=== PATIENT | female | born 1990 | race Caucasian/White ===

== ENCOUNTER → 2016-05-24 | Outpatient (REF) | payer OTHER, BC | END | disposition home or self-care (01) | LOC: M LAB REF 16:21 | PROVIDERS: ATTEND Physician Assistant | DX: N39.0 Urinary tract infection, site not specified (principal) ==

== ENCOUNTER → 2016-08-01 | Outpatient (REF) | payer OTHER, BC | LOC: M LAB REF 13:08 | PROVIDERS: ATTEND Physician Assistant | DX: J02.9 Acute pharyngitis, unspecified (principal) ==

== ENCOUNTER → 2017-06-11 | Outpatient (REF) | payer OTHER, BC ==
[2017-06-11 12:43] LABS: INFLUENZA A AMPLIFICATION NEGATIVE (NEGATIVE); INFLUENZA B AMPLIFICATION NEGATIVE (NEGATIVE)
== END ==
LOC: M SFHCLERA 10:33
DX: R53.81 Other malaise (principal); R05 Cough

== ENCOUNTER → 2017-07-15 | Outpatient (REF) | payer OTHER, BC | LOC: M LAB REF 09:15 | DX: J02.9 Acute pharyngitis, unspecified (principal) | CPT/HCPCS: 87081 ==

== ENCOUNTER → 2018-09-15 | Outpatient (CLI) | payer OTHER, BC ==
--- NOTE | 2018-09-16 04:18 | REP ---
Clinical: Dyspareunia with familial history of endometriosis . Technique: Transabdominal pelvic ultrasound followed by transvaginal examination for better evaluation of the endometrium and adnexa. Findings: Bladder is unremarkable and measures 11.6 x 9.9 x 7.5 cm . Normal anteverted uterus measures 6.7 x 2.2 x 3.1 cm . The endometrial complex measures 3.3 mm thickness. No discrete uterine or endometrial abnormalities are appreciated. Bilateral ovaries were not visible on either transabdominal or transvaginal examination. No pelvic fluid or adnexal mass lesion appreciated. Impression: 1. Normal appearing uterus. 2. Ovaries not identified on either transabdominal or transvaginal imaging.
== END ==
LOC: M WHC 09:00
PROVIDERS: ATTEND Nurse Practitioner Women's Health
DX: N94.10 Unspecified dyspareunia (principal); Z84.2 Family history of other diseases of the genitourinary system

== ENCOUNTER → 2019-02-12 | Outpatient (REF) | payer OTHER ==
[2019-02-12 15:18] LABS: CHLAMYDIA DNA AMPLIFICATION NEGATIVE (NEGATIVE); GC DNA AMPLIFICATION NEGATIVE (NEGATIVE)
== END ==
LOC: M SFHCWAGY 13:02
PROVIDERS: ATTEND Nurse Practitioner Women's Health
DX: Z11.3 Encounter for screening for infections with a predominantly sexual mode of transmission (principal)

== ENCOUNTER → 2019-04-08 | Outpatient (REF) | payer OTHER ==
[2019-04-08 19:23] LABS: APPEARANCE, URINE CLEAR (CLEAR); BACTERIA, URINE AUTO NEGATIVE (NEGATIVE); BILIRUBIN, URINE AUTO NEGATIVE (NEGATIVE); BLOOD, URINE BLOOD 2+ (NEGATIVE); COLOR, URINE STRAW (YELLOW); GLUCOSE, URINE (UA) AUTO NEGATIVE (NEGATIVE); KETONE, URINE AUTO NEGATIVE (NEGATIVE); LEUKOCYTE ESTERASE, URINE AUTO TRACE (NEGATIVE); NITRITE, URINE AUTO NEGATIVE (NEGATIVE); PROTEIN, URINE AUTO NEGATIVE (NEGATIVE); RBC, URINE AUTO 1 /HPF (0-3); SPECIFIC GRAVITY URINE AUTO 1.008 (1.002-1.035); SQUAMOUS EPITHELIAL CELL UR AU 0 /HPF (0-6); UROBILINOGEN, URINE AUTO 0.2 mg/dL (0.0-2.0); WBC, URINE AUTO 1 /HPF (0-3)
== END ==
LOC: M LAB REF 17:14
PROVIDERS: ATTEND Obstetrics & Gynecology
DX: N39.41 Urge incontinence (principal); N32.81 Overactive bladder

== ENCOUNTER 2019-07-09 08:00 | Day surgery (SDC) | payer OTHER ==
[~2019-07-09] VITALS: Ht 160 cm; Wt 63.1 kg
[~2019-07-09 08:00] MED LIST: AMETHYST PO; AMIT25TA PO; LIDOCAINE 1% MDV 20ML VIAL SQ PRN; LR 1,000 ML IV ONE
[2019-07-09] MEDS ORDERED: MIDAZOLAM INJ 2 MG/2 ML VIAL (J2250) As Ordered ONE (10:07)
[2019-07-09] MEDS ORDERED: KETOROLAC 60 MG/2 ML VIAL (J1885) As Ordered ONE (10:07)
[2019-07-09] MEDS ORDERED: ONDANSETRON 4MG/2ML VIAL (J2405) As Ordered ONE (10:07)
[2019-07-09] MEDS ORDERED: ROCURONIUM BROMIDE 50 MG/5 ML VIAL As Ordered ONE (10:07)
[2019-07-09] MEDS ORDERED: fentaNYL 100 MCG/2 ML INJECTION (J3010) As Ordered ONE (10:07)
[2019-07-09] MEDS ORDERED: dexameTHASONE 4 MG/ML 1ML VIAL (J1100) As Ordered ONE (10:07)
[2019-07-09] MEDS ORDERED: LIDOCAINE 2% INJ 100 MG/5 ML SDV (FOR ANES.) As Ordered ONE (10:07)
[2019-07-09] MEDS ORDERED: propofoL 200 MG/20 ML VIAL As Ordered ONE (10:07)
[2019-07-09] MEDS ORDERED: SUGAMMADEX SODIUM 500 MG/5 ML VIAL (BRIDION) As Ordered ONE (10:07)
[2019-07-09] MEDS ORDERED: HYDROmorphone HCL 2 MG/ML 1ML VIAL (J1170) As Ordered ONE (10:09)
[2019-07-09] MEDS ORDERED: METOCLOPRAMIDE INJ 10MG/2ML VIAL (J2765) IV PRN (11:30)
[2019-07-09] MEDS ORDERED: fentaNYL 100 MCG/2 ML INJECTION (J3010) IV PRN (11:30)
[2019-07-09] MEDS ORDERED: PERCOCET 5MG/325MG TAB PO PRN (11:30)
[2019-07-09] MEDS ORDERED: LR 1,000 ML IV SCH ×2 (11:30→12:31)
[2019-07-09] MEDS: ONDANSETRON 4MG/2ML VIAL (J2405) IV PRN ×2 (11:35→11:52)
[2019-07-09] MEDS ORDERED: PILL CUTTER 1 EACH XX ONE (11:40)
[2019-07-09] MEDS ORDERED: IBUPROFEN 600 MG TAB PO PRN (12:31)
[2019-07-09] MEDS ORDERED: NORCO, ANEXSIA 5/325MG TABLET (HYDROcodone/ACETAMINOPHEN) PO PRN (12:31)
[2019-07-09 13:30] VITALS: BP 125/67
--- NOTE | 2019-07-10 18:33 | RO ---
DATE OF PROCEDURE: 07/09/2019 PREOPERATIVE DIAGNOSIS: Left and right lower abdominal tenderness and pain and bladder tenderness. POSTOPERATIVE DIAGNOSIS: Minor adhesions of the descending colon, but no endometriosis, no evidence visibly of interstitial cystitis or of polyp, adhesion, or other significant lesion. She does have a little bit more prolapse than is average for her age. PROCEDURE: Laparoscopic lysis of adhesions and cystourethroscopy. SURGEON: Dr. Sharmila Rothman INTERNSHIP: None. ANESTHESIA: General endotracheal anesthesia. DESCRIPTION OF PROCEDURE: Giana was brought to the operating room where sufficient general endotracheal anesthesia was induced, and she was prepped, draped and positioned in the usual sterile fashion. With the uterine manipulator placed, after the uterus had been sounded to 7-1/2, and the bladder emptied. Attention was then turned to the abdomen. A transverse semilunar incision was made below the umbilicus. Sharp and blunt dissection continued through the subcutaneous tissues to the level of the rectus fascia, which was grasped with Rosas clamps, elevated to the wound, transversely incised under direct visualization. #0 Vicryl retention sutures were placed in the fascia. Then, peritoneum was entered directly in an open laparoscopic technique and a Cinthya cannula placed. CO2 insufflation was then begun, and the Cinthya was secured with the #0 Vicryl retention sutures. After adequate CO2 insufflation, the peritoneal cavity was visualized. There were normal, shiny peritoneal surfaces throughout. There was no excrescence, ascites, nor exudate. There was no powder burn or bright red lesions of endometriosis. There were no annular adhesions of the pelvis consistent with endometriosis. There were no adhesions or scarring in the ovarian fossa. There was no scarring over the tubes. There was no discernible evidence of endometriosis on any of the eval. The patient has a prominent and visible gallbladder as noted in the photos with a very clear, normal appearing liver, and had some filmy adhesions of the descending colon as is often seen. These were taken down with the cold scissors. There was really no difficulty in doing that. We did not need to use cautery. We did not have anything that we could biopsy, and the laser support was present but was not needed for this case, and so it was not used at any point because there were no lesions for which it was appropriate. Having confirmed a normal appearing abdomen and pelvis, with the exception of those minor adhesions which were taken down, we then ended the laparoscopic part of the case, letting as much of the CO2 escape the abdomen as possible. And closing the fascial wound at the umbilicus with the #0 Vicryl retention sutures and closing the skin wound with #3-0 Vicryl in a subcuticular stitch with good approximation and hemostasis at both layers, and a dry sterile dressing was then applied. Attention was turned to the cystourethroscopy. Of course, the uterine manipulator was removed at this point. At the time of cystourethroscopy, normal bladder mucosa was noted. There were no Hunner's lesions. There were no polyps. There were no hypervascular lesions. There were normal jets of urine from both ureters. There was a minor area of metaplasia over the trigone with an absolutely normal appearance as is typically seen. There was no scarring of the bladder from overfilling or sacculation of the wall. There were no diverticula. The urethra was similarly normal in appearance. The bladder was emptied at the end of the case, and the procedure was then ended. Estimated blood loss for the procedure: About 2 mL. Fluid replacement was crystalloid. Complications: None. Condition and Disposition: Giana tolerated the procedure well and was recovering in the recovery room in good condition.
== END 2019-07-09 13:40 | disposition home or self-care (01) ==
LOC: M SDC 08:00
PROVIDERS: ATTEND Obstetrics & Gynecology
DX: R10.31 Right lower quadrant pain (principal); R10.32 Left lower quadrant pain; R39.89 Other symptoms and signs involving the genitourinary system; K66.0 Peritoneal adhesions (postprocedural) (postinfection); N94.10 Unspecified dyspareunia; J00 Acute nasopharyngitis [common cold]; Z88.8 Allergy status to other drugs, medicaments and biological substances; Z79.899 Other long term (current) drug therapy
CPT/HCPCS: 49320; 52000; 81025; J1100; J1170; J1885; J2250; J2405; J2765; J3010

== ENCOUNTER → 2020-06-20 | Outpatient (REF) | payer OTHER ==
[~2020-06-20] MED LIST changes: -AMIT25TA PO; +AMIT25TA17 PO; -LIDOCAINE 1% MDV 20ML VIAL SQ PRN; -LR 1,000 ML IV ONE
== END ==
LOC: M SFHCWAGY 13:28
PROVIDERS: ATTEND Nurse Practitioner Women's Health
DX: Z12.4 Encounter for screening for malignant neoplasm of cervix (principal)

== ENCOUNTER → 2021-01-23 | Outpatient (CLI) | payer OTHER ==
[2021-01-23 17:55] LABS: BASO % 0.5 % (0.0-1.0); HEMATOCRIT 36.5 % (36.0-47.0); HEMOGLOBIN 12.2 g/dl (12.0-15.5); LYMPH # 1.6 10^3/uL (1.5-5.0); LYMPH % 18.5 % (24.0-44.0); MEAN CORPUSCULAR HEMOGLOBIN 29.6 pg (27.0-33.0); MEAN CORPUSCULAR HGB CONC 33.4 g/dl (32.0-36.5); MEAN CORPUSCULAR VOLUME 88.6 fl (80.0-96.0); MONO # 0.6 10^3/uL (0.0-0.8); NEUTROPHILS # 6.3 10^3/uL (1.5-8.5); NEUTROPHILS % 73.6 % (36.0-66.0); PLATELET COUNT, AUTOMATED 119 10^3/uL (150-450); RED BLOOD COUNT 4.12 10^6/uL (4.00-5.40); WHITE BLOOD COUNT 8.5 10^3/uL (4.0-10.0)
[2021-01-23 19:15] LABS: HIV 1&2 SCREEN CENTAUR NEGATIVE (NEGATIVE)
[2021-01-23 22:14] LABS: GC DNA AMPLIFICATION NEGATIVE (NEGATIVE)
== END ==
LOC: M PLALAB 14:57
PROVIDERS: ATTEND Obstetrics & Gynecology
DX: Z34.91 Encounter for supervision of normal pregnancy, unspecified, first trimester (principal); Z36.89 Encounter for other specified antenatal screening

== ENCOUNTER → 2021-03-03 | Outpatient (CLI) | payer OTHER ==
[2021-03-03 17:14] LABS: HEMATOCRIT 32.3 % (36.0-47.0); MEAN CORPUSCULAR HGB CONC 34.1 g/dl (32.0-36.5); PLATELET COUNT, AUTOMATED 149 10^3/uL (150-450); RED BLOOD COUNT 3.67 10^6/uL (4.00-5.40); WHITE BLOOD COUNT 8.9 10^3/uL (4.0-10.0)
== END ==
LOC: M PLALAB 15:37
PROVIDERS: ATTEND Obstetrics & Gynecology
DX: Z34.01 Encounter for supervision of normal first pregnancy, first trimester (principal); Z3A.00 Weeks of gestation of pregnancy not specified

== ENCOUNTER → 2021-04-17 | Outpatient (CLI) | payer OTHER ==
--- NOTE | 2021-04-17 12:27 | REP ---
INDICATION: ANATOMY COMPARISON: None. TECHNIQUE: Transabdominal obstetrical ultrasound with color Doppler evaluation. FINDINGS: Examination demonstrates a single live intrauterine in cephalic presentation. motion is identified by technologist. Placenta is noted anterior and grade 0 without evidence for placenta previa or abruption. Amniotic fluid volume is normal. Cervix measures 4.7 cm in length and appears closed.. Selected gestational age: 20 weeks 1 day with HANNA 09/03/2021. Gestational age by current measurements 20 weeks 1 day with HANNA 09/03/2021. FHR equals 146 beats per minute. Estimated weight 349 grams (58thpercentile). Anatomical assessment demonstrates normal structures including cranium, choroid plexus, cavum, cerebellum/posterior fossa, facial features, lungs, four-chamber heart/ventricular outflow tracts, diaphragm, stomach, cord insertion/three-vessel cord, kidneys/bladder, spine, and extremities. Limited evaluation of the facial profile. IMPRESSION: Single live intrauterine in cephalic presentation demonstrating appropriate estimated weight. Limited evaluation of the facial profile. Remainder of the anatomical assessment is complete and normal. <Electronically signed by Bjorn Archuleta > 04/17/21 [id number]
== END ==
LOC: M WHC 10:00
PROVIDERS: ATTEND Specialist
DX: Z34.02 Encounter for supervision of normal first pregnancy, second trimester (principal); Z36.89 Encounter for other specified antenatal screening; Z3A.20 20 weeks gestation of pregnancy

== ENCOUNTER → 2021-05-01 | Outpatient (CLI) | payer OTHER | LOC: M WHC 10:53 | PROVIDERS: ATTEND Advanced Practice Midwife | DX: Z34.02 Encounter for supervision of normal first pregnancy, second trimester (principal); Z3A.22 22 weeks gestation of pregnancy ==

== ENCOUNTER → 2021-05-01 | Outpatient (CLI) | payer OTHER | LOC: M WHC 10:52 | PROVIDERS: ATTEND Advanced Practice Midwife | DX: Z34.02 Encounter for supervision of normal first pregnancy, second trimester (principal); Z53.9 Procedure and treatment not carried out, unspecified reason ==

== ENCOUNTER → 2021-06-05 | Outpatient (CLI) | payer OTHER ==
[2021-06-05 12:54] LABS: HEMATOCRIT 30.4 % (36.0-47.0); HEMOGLOBIN 10.2 g/dl (12.0-15.5); MEAN CORPUSCULAR HEMOGLOBIN 30.3 pg (27.0-33.0); MEAN CORPUSCULAR HGB CONC 33.6 g/dl (32.0-36.5); MEAN CORPUSCULAR VOLUME 90.2 fl (80.0-96.0); PLATELET COUNT, AUTOMATED 166 10^3/uL (150-450); RED BLOOD COUNT 3.37 10^6/uL (4.00-5.40); WHITE BLOOD COUNT 8.3 10^3/uL (4.0-10.0)
[2021-06-05 14:47] LABS: GC DNA AMPLIFICATION NEGATIVE (NEGATIVE)
== END ==
LOC: M PLALAB 09:45
PROVIDERS: ATTEND Obstetrics & Gynecology
DX: Z36.89 Encounter for other specified antenatal screening (principal); Z3A.24 24 weeks gestation of pregnancy

== ENCOUNTER → 2021-06-26 | Outpatient (CLI) | payer OTHER | LOC: M LAB 06:53 | PROVIDERS: ATTEND Obstetrics & Gynecology | DX: R73.09 Other abnormal glucose (principal) ==

== ENCOUNTER → 2021-08-04 | Outpatient (CLI) | payer OTHER | LOC: M WHC 14:03 | PROVIDERS: ATTEND Obstetrics & Gynecology | DX: O26.843 Uterine size-date discrepancy, third trimester (principal); Z3A.35 35 weeks gestation of pregnancy ==

== ENCOUNTER → 2021-08-08 | Outpatient (REF) | payer OTHER | LOC: M SFHCWAGY 14:54 | PROVIDERS: ATTEND Obstetrics & Gynecology | DX: Z34.80 Encounter for supervision of other normal pregnancy, unspecified trimester (principal); Z3A.36 36 weeks gestation of pregnancy ==

== ENCOUNTER → 2021-10-18 | Outpatient (REF) | payer MEDICAID, OTHER ==
[~2021-10-18] MED LIST changes: +ACET-683 PO; +IBUP80TA PO
== END ==
LOC: M SFHCWAGY 12:52
PROVIDERS: ATTEND Obstetrics & Gynecology
DX: R30.0 Dysuria (principal)

== ENCOUNTER → 2022-09-17 | Outpatient (CLI) | payer OTHER ==
[2022-09-17 13:34] LABS: HEMATOCRIT 37.7 % (36.0-47.0); HEMOGLOBIN 12.5 g/dl (12.0-15.5); MEAN CORPUSCULAR HEMOGLOBIN 29.1 pg (27.0-33.0); MEAN CORPUSCULAR HGB CONC 33.2 g/dl (32.0-36.5); MEAN CORPUSCULAR VOLUME 87.7 fl (80.0-96.0); PLATELET COUNT, AUTOMATED 266 10^3/uL (150-450); WHITE BLOOD COUNT 6.4 10^3/uL (4.0-10.0)
[2022-09-17 14:27] LABS: HIV 1&2 SCREEN NEGATIVE (NEGATIVE)
[2022-09-17 15:06] LABS: GC DNA AMPLIFICATION NEGATIVE (NEGATIVE)
== END ==
LOC: M PLALAB 09:32
PROVIDERS: ATTEND Obstetrics & Gynecology
DX: Z36.89 Encounter for other specified antenatal screening (principal); Z3A.00 Weeks of gestation of pregnancy not specified

== ENCOUNTER → 2022-11-28 | Outpatient (CLI) | payer OTHER | LOC: M WHC 12:16 | PROVIDERS: ATTEND Advanced Practice Midwife | DX: Z34.92 Encounter for supervision of normal pregnancy, unspecified, second trimester (principal); Z3A.19 19 weeks gestation of pregnancy ==

== ENCOUNTER → 2023-01-11 | Outpatient (CLI) | payer OTHER ==
[~2023-01-11] MED LIST changes: -AMIT25TA17 PO; +AMIT25TA19 PO
== END ==
LOC: M WHC 10:41
PROVIDERS: ATTEND Advanced Practice Midwife
DX: O36.5920 Maternal care for other known or suspected poor fetal growth, second trimester, not applicable or unspecified (principal); Z3A.25 25 weeks gestation of pregnancy

== ENCOUNTER → 2023-01-15 | Outpatient (CLI) | payer OTHER ==
[2023-01-15 13:49] LABS: HEMATOCRIT 30.4 % (36.0-47.0); HEMOGLOBIN 10.1 g/dl (12.0-15.5); MEAN CORPUSCULAR HEMOGLOBIN 30.3 pg (27.0-33.0); MEAN CORPUSCULAR HGB CONC 33.2 g/dl (32.0-36.5); MEAN CORPUSCULAR VOLUME 91.3 fl (80.0-96.0); PLATELET COUNT, AUTOMATED 172 10^3/uL (150-450); RED BLOOD COUNT 3.33 10^6/uL (4.00-5.40); WHITE BLOOD COUNT 7.5 10^3/uL (4.0-10.0)
[2023-01-15 15:13] LABS: GC DNA AMPLIFICATION NEGATIVE (NEGATIVE)
== END ==
LOC: M PLALAB 08:28
PROVIDERS: ATTEND Advanced Practice Midwife
DX: Z34.92 Encounter for supervision of normal pregnancy, unspecified, second trimester (principal)

== ENCOUNTER → 2023-03-08 | Outpatient (CLI) | payer OTHER | LOC: M WHC 14:15 | PROVIDERS: ATTEND Advanced Practice Midwife | DX: O26.843 Uterine size-date discrepancy, third trimester (principal); Z3A.33 33 weeks gestation of pregnancy ==

== ENCOUNTER → 2023-03-14 | Outpatient (CLI) | payer OTHER | LOC: M WHC 14:28 | PROVIDERS: ATTEND Advanced Practice Midwife | DX: O36.5993 Maternal care for other known or suspected poor fetal growth, unspecified trimester, fetus 3 (principal); Z3A.34 34 weeks gestation of pregnancy ==

== ENCOUNTER → 2023-03-21 | Outpatient (CLI) | payer OTHER | LOC: M WHC 14:35 | PROVIDERS: ATTEND Advanced Practice Midwife | DX: O36.5993 Maternal care for other known or suspected poor fetal growth, unspecified trimester, fetus 3 (principal); Z3A.35 35 weeks gestation of pregnancy ==

== ENCOUNTER → 2023-03-25 | Outpatient (REF) | payer OTHER | LOC: M SFHCWAGY 17:20 | PROVIDERS: ATTEND Obstetrics & Gynecology | DX: Z36.85 Encounter for antenatal screening for Streptococcus B (principal) ==

== ENCOUNTER → 2023-03-27 | Outpatient (CLI) | payer OTHER | LOC: M WHC 14:20 | PROVIDERS: ATTEND Advanced Practice Midwife | DX: O36.5930 Maternal care for other known or suspected poor fetal growth, third trimester, not applicable or unspecified (principal); Z3A.36 36 weeks gestation of pregnancy ==

== ENCOUNTER → 2023-04-11 | Outpatient (CLI) | payer OTHER ==
[~2023-04-11] MED LIST changes: +IRON1TAB2 PO; +MULTTAB20 PO; +TUMS750C5 PO
== END ==
LOC: M WHC 14:25
PROVIDERS: ATTEND Advanced Practice Midwife
DX: O36.5993 Maternal care for other known or suspected poor fetal growth, unspecified trimester, fetus 3 (principal); Z3A.38 38 weeks gestation of pregnancy

== ENCOUNTER 2023-04-13 09:33 | Inpatient (IN) | payer OTHER ==
[~2023-04-13] VITALS: Ht 160 cm; Wt 77.6 kg
[2023-04-13] VITALS (15 sets, daily range): BP systolic 127–149; BP diastolic 72–94
[~2023-04-13 09:33] MED LIST changes: -IRON1TAB2 PO; -MULTTAB20 PO; -TUMS750C5 PO
[2023-04-13] MEDS ORDERED: TUMS750C5 PO (10:00)
[2023-04-13] MEDS ORDERED: IRON1TAB2 PO (10:00)
[2023-04-13] MEDS ORDERED: MULTTAB20 PO (10:00)
[2023-04-13] MEDS ORDERED: HOME MED LIST COMPLETE! XX SCH (10:05)
[2023-04-13] MEDS ORDERED: LIDOCAINE 1% MDV 20ML VIAL INFIL PRN (10:35)
[2023-04-13] MEDS: miSOPROStol 50MCG 1/2 TABLET PO SCH ×3 (11:18→19:32)
[2023-04-13 11:36] LABS: HEMATOCRIT 33.5 % (36.0-47.0); HEMOGLOBIN 11.6 g/dl (12.0-15.5); MEAN CORPUSCULAR HEMOGLOBIN 30.8 pg (27.0-33.0); MEAN CORPUSCULAR HGB CONC 34.6 g/dl (32.0-36.5); MEAN CORPUSCULAR VOLUME 88.9 fl (80.0-96.0); PLATELET COUNT, AUTOMATED 168 10^3/uL (150-450); RED BLOOD COUNT 3.77 10^6/uL (4.00-5.40); WHITE BLOOD COUNT 9.1 10^3/uL (4.0-10.0)
[2023-04-13 12:35] LABS: ALT/SGPT 16 U/L (7.0-40); AST/SGOT 18 U/L (<34); BILIRUBIN,TOTAL 0.4 MG/DL (0.3-1.2); CREATININE FOR GFR 0.56 MG/DL (0.55-1.30); GLOMERULAR FILTRATION RATE > 60.0 (>60); LDH LACTATE DEHYDROGENASE 190 U/L (120-246)
[2023-04-13 12:39] LABS: URIC ACID 3.6 MG/DL (3.1-7.8)
[2023-04-13 12:46] LABS: CREATININE,RANDOM URINE 31.8 MG/DL
[2023-04-13 12:48] LABS: TOTAL PROTEIN,RANDOM URINE < 6.0 MG/DL (0.0-14.0)
[2023-04-14] VITALS (22 sets, daily range): BP systolic 112–184; BP diastolic 57–95; O2SAT 97–99
[2023-04-14] MEDS ORDERED: EPIDURAL/PCA KEYS XX PRN (00:15)
[2023-04-14] MEDS ORDERED: ePHEDrine SULFATE 25 MG/5 ML(5MG/ML) SYRINGE IVP PRN (00:15)
[2023-04-14] MEDS ORDERED: NALOXONE INJ 0.4MG/1ML VIAL IV PRN (00:15)
[2023-04-14] MEDS ORDERED: LR 500 ML IV PRN (00:15)
[2023-04-14] MEDS ORDERED: ONDANSETRON 4MG 2ML VIAL IV PRN (00:15)
[2023-04-14] MEDS ORDERED: FENTANYL/ROPIVACAINE/NACL BAG 100 ML EPIDURAL SCH (00:15)
[2023-04-14] MEDS ORDERED: diphenhydrAMINE 50MG/ML VIAL IV PRN (00:15)
[2023-04-14] MEDS ORDERED: IBUPROFEN 600MG TAB PO PRN (02:20)
[2023-04-14] MEDS ORDERED: ACETAMINOPHEN 500 MG TAB PO PRN (02:20)
[2023-04-14] MEDS ORDERED: DIBUCAINE 1% OINTMENT 30GM TOP PRN (02:20)
[2023-04-14] MEDS ORDERED: ANUSOL HC CREAM 30GM TOP PRN (02:20)
[2023-04-14] MEDS ORDERED: ACETAMINOPHEN TAB 650MG DOSE (2X325MG) PO PRN (02:20)
[2023-04-14] MEDS ORDERED: MOM 30ML SUSPENSION UDC PO PRN (02:20)
[2023-04-14] MEDS ORDERED: OXYTOCIN DRIP 30 UNITS in IV 1 EA IV SCH ×3 (02:20)
[2023-04-14] MEDS ORDERED: RHOGAM 300MCG (1500IU) INJ IM SCH (02:20)
[2023-04-14] MEDS ORDERED: IBUPROFEN 800 MG TAB PO PRN (02:20)
[2023-04-14] MEDS ORDERED: DOCUSATE SODIUM 100MG CAPSULE PO PRN (02:20)
[2023-04-14] MEDS: PRENATAL VITAMINS CHEWABLE TABLET PO SCH (08:25)
[2023-04-15 06:00] VITALS: BP 112/65; O2SAT 98
[2023-04-15] MEDS ORDERED: MEASLES,MUMPS,RUBELLA VACCINE INJ (MMR-II) SC.IMMUN ONE (09:00)
[2023-04-15] MEDS: PRENATAL VITAMINS CHEWABLE TABLET PO SCH (09:53)
[2023-04-15] MEDS ORDERED: ACET-683 PO (12:44)
[2023-04-15] MEDS ORDERED: IBUP80TA PO (12:44)
[2023-04-15 18:00] VITALS: BP 130/82; O2SAT 98
== END 2023-04-15 19:07 | disposition home or self-care (01) | DRG 560 ==
LOC: M LDI 09:33 → M OBS 04-14 04:07
PROVIDERS: ADMIT Obstetrics & Gynecology; ATTEND Obstetrics & Gynecology
PROC: 3E0P7GC Introduction of Other Therapeutic Substance into Female Reproductive, Via Natural or Artificial Opening (ICD-10-PCS; 2023-04-13)
PROC: 10E0XZZ Delivery of Products of Conception, External Approach (ICD-10-PCS; principal; 2023-04-14)
PROC: 0UQMXZZ Repair Vulva, External Approach (ICD-10-PCS; 2023-04-14)
DX: O36.5930 Maternal care for other known or suspected poor fetal growth, third trimester, not applicable or unspecified (principal); Z37.0 Single live birth; Z3A.39 39 weeks gestation of pregnancy; O71.82 Other specified trauma to perineum and vulva; O69.81X0 Labor and delivery complicated by cord around neck, without compression, not applicable or unspecified

== ENCOUNTER → 2023-09-03 | Outpatient (REF) | payer OTHER, MEDICAID ==
[~2023-09-03] MED LIST changes: +IRON1TAB2 PO; +MULTTAB20 PO; +TUMS750C5 PO
== END ==
LOC: M SFHCWAGY 10:30
PROVIDERS: ATTEND Nurse Practitioner Family
DX: Z12.4 Encounter for screening for malignant neoplasm of cervix (principal)

== ENCOUNTER → 2024-01-08 | Outpatient (CLI) | payer OTHER | LOC: M PLALAB 15:16 | PROVIDERS: ATTEND Advanced Practice Midwife | DX: O20.0 Threatened abortion (principal); Z3A.00 Weeks of gestation of pregnancy not specified ==

== ENCOUNTER → 2024-01-10 | Outpatient (CLI) | payer OTHER | LOC: M PLALAB 15:22 | PROVIDERS: ATTEND Advanced Practice Midwife | DX: O20.0 Threatened abortion (principal) ==

== ENCOUNTER → 2024-01-17 | Outpatient (CLI) | payer OTHER | LOC: M PLALAB 08:40 | PROVIDERS: ATTEND Advanced Practice Midwife | DX: O03.9 Complete or unspecified spontaneous abortion without complication (principal) ==

== ENCOUNTER → 2024-09-07 | Outpatient (CLI) | payer OTHER ==
[2024-09-07 14:09] LABS: Trichomonas vaginalis (AMP) NOT DETECTED (NEGATIVE)
[2024-09-07 14:32] LABS: GC DNA AMPLIFICATION NEGATIVE (NEGATIVE)
[2024-09-07 14:35] LABS: HEMATOCRIT 36.9 % (36.0-47.0); HEMOGLOBIN 12.2 g/dl (12.0-15.5); MEAN CORPUSCULAR HEMOGLOBIN 28.6 pg (27.0-33.0); MEAN CORPUSCULAR HGB CONC 33.1 g/dl (32.0-36.5); MEAN CORPUSCULAR VOLUME 86.4 fl (80.0-96.0); PLATELET COUNT, AUTOMATED 277 10^3/uL (150-450); RED BLOOD COUNT 4.27 10^6/uL (4.00-5.40); WHITE BLOOD COUNT 5.6 10^3/uL (4.0-10.0)
[2024-09-07 15:29] LABS: HIV 1&2 SCREEN NEGATIVE (NEGATIVE)
[2024-09-07 15:37] LABS: HEPATITIS C VIRUS ABY INDEX < 0.02 INDEX (<0.8)
[2024-09-07 15:41] LABS: HCG, SERUM QUANTITATIVE 2001.4 MIU/ML (<4.2)
== END ==
LOC: M PLALAB 10:03
PROVIDERS: ATTEND Nurse Practitioner Family
DX: Z32.01 Encounter for pregnancy test, result positive (principal)

== ENCOUNTER → 2024-12-17 | Outpatient (CLI) | payer OTHER | LOC: M WHC 11:32 | PROVIDERS: ATTEND Nurse Practitioner Family | DX: Z36.2 Encounter for other antenatal screening follow-up (principal) ==

== ENCOUNTER → 2025-02-09 | Outpatient (CLI) | payer OTHER ==
[2025-02-09 15:17] LABS: PLATELET COUNT, AUTOMATED 182 10^3/uL (150-450)
[2025-02-09 15:37] LABS: GLUCOSE CHALLENGE TEST 1 HOUR 121 MG/DL (LESS THAN 140)
[2025-02-09 15:54] LABS: Trichomonas vaginalis (AMP) NOT DETECTED (NEGATIVE)
[2025-02-09 16:12] LABS: HIV 1&2 SCREEN NEGATIVE (NEGATIVE)
[2025-02-09 16:18] LABS: GC DNA AMPLIFICATION NEGATIVE (NEGATIVE)
[2025-02-09 16:20] LABS: HEPATITIS C VIRUS ABY INDEX 0.02 INDEX (<0.8)
== END ==
LOC: M PLALAB 09:29
PROVIDERS: ATTEND Obstetrics & Gynecology
DX: Z34.92 Encounter for supervision of normal pregnancy, unspecified, second trimester (principal)

== ENCOUNTER → 2025-04-15 | Outpatient (REF) | payer OTHER | LOC: M PLALAB 04-14 15:22 | PROVIDERS: ATTEND Obstetrics & Gynecology | DX: Z36.85 Encounter for antenatal screening for Streptococcus B (principal); Z3A.36 36 weeks gestation of pregnancy ==